=== PATIENT | male | born 1995 | race Caucasian/White ===

== ENCOUNTER 2018-01-06 13:28 | Emergency (ER) | payer MEDICAID ==
[2018-01-06 13:31] VITALS: RESP 20; O2SAT 97
--- NOTE | 2018-01-06 15:05 | C.PDOC ---
History Of Present Illness 22 y/o male presents to the ED for evaluation s/p near syncopal episode this morning. Patient states he met a friend at 04/06 for breakfast and when getting up to leave he almost passed out. Patient describes dizziness and tunnel vision but has able to somewhat catch himself on railing and sit down. No head trauma or other injury. Mother states the patient did not eat breakfast this morning and also has not been sleeping much. Last night he went to bed at 5:00am and awoke at 6:30am. Patient denies any chest pain, change in vision, SOB, numbness , focal weakness, or abdominal pain. Time Seen by Provider: 01/06/18 13:57 Chief Complaint (Nursing): Syncope History Per: Patient History/Exam Limitations: no limitations Onset/Duration Of Symptoms: Hrs Number Of Syncopal Episodes: 1 Activity At Onset Of Symptoms: Standing Associated Symptoms Preceding Syncopal Episode: Lightheadedness Seizure Or Post-ictal Symptoms: None Past Medical History Reviewed: Historical Data, Nursing Documentation, Vital Signs Vital Signs: Last Vital Signs Temp 99 F 01/06/18 16:30 Pulse 103 H 01/06/18 16:30 Resp 20 01/06/18 16:30 BP 100/63 01/06/18 16:30 Pulse Ox 97 01/06/18 16:36 - Medical History PMH: No Chronic Diseases Surgical History: No Surg Hx Family History: States: No Known Family Hx - Social History Hx Alcohol Use: No Hx Substance Use: No - Immunization History Hx Tetanus Toxoid Vaccination: No Hx Influenza Vaccination: No Hx Pneumococcal Vaccination: No Review Of Systems Except As Marked, All Systems Reviewed And Found Negative. Cardiovascular: Negative for: Chest Pain Respiratory: Negative for: Shortness of Breath Gastrointestinal: Negative for: Nausea Neurological: Positive for: Dizziness, Other (Near syncopal episode). Negative for: Weakness, Numbness Physical Exam - Physical Exam Appears: Non-toxic, No Acute Distress, Other (Thin appearing) Skin: Warm, Dry, No Rash Head: Atraumatic, Normacephalic Eye(s): bilateral: Normal Inspection, PERRL, EOMI Nose: Normal Oral Mucosa: Moist Neck: Normal ROM Chest: Symmetrical Cardiovascular: Rhythm Regular, No Murmur Respiratory: Normal Breath Sounds, No Rales, No Rhonchi, No Wheezing Gastrointestinal/Abdominal: Soft, No Tenderness, No Distention Back: Normal Inspection, No CVA Tenderness, No Vertebral Tenderness Extremity: Bilateral: Atraumatic, Normal Color And Temperature, Normal ROM Pulses: Left Radial: Normal, Right Radial: Normal Neurological/Psych: Oriented x3, Normal Speech, Normal Motor, Normal Sensation, No Other (focal deficits) Gait: Steady ED Course And Treatment - Laboratory Results Result Diagrams: 01/06/18 15:56 01/06/18 15:56 ECG: Interpreted By Me, Viewed By Me ECG Rhythm: Sinus Rhythm ECG Interpretation: Normal Rate From EC O2 Sat by Pulse Oximetry: 97 (RA) Pulse Ox Interpretation: Normal Medical Decision Making Medical Decision Making: Old records reviewed, there are no prior visits. Time: 14:04 Initial Plan: * Accucheck * CMP * CBC * EKG Finger stick is 141. Labs reviewed, and are grossly normal. On re-exam, the patient reports improvement of symptoms. Lugs are CTA, heart is RRR, Abdomen is soft, non- tender and the patient is tolerating PO well. Discussed all findings with patient and family. Patient is medically stable for discharge home. Advised to follow up with primary doctor for further evaluation. Disposition Counseled Patient/Family Regarding: Studies Performed, Diagnosis, Need For Followup - Disposition Referrals: [facility] [Outside] Disposition: HOME/ ROUTINE Disposition Time: 16:24 Condition: GOOD Additional Instructions: Follow up with medical doctor within 1-2 days. Return if worsened. Instructions: Near Fainting Forms: [facility] (Y[place]i) - POA Present On Arrival: None - Clinical Impression Clinical Impression: Near syncope - PA / BLUNGER / Resident Statement MD/DO has reviewed & agrees with the documentation as recorded. - Scribe Statement The provider has reviewed the documentation as recorded by the Scribe (Latesha Acosta) All medical record entries made by the Scribe were at my direction and personally dictated by me. I have reviewed the chart and agree that the record accurately reflects my personal performance of the history, physical exam, medical decision making, and the department course for this patient. I have also personally directed, reviewed, and agree with the discharge instructions and disposition.
[2018-01-06 16:03] LABS: BASO % 0.3 % (0.0-2.0); EOS % 0.3 % (0.0-4.0); HEMOGLOBIN 13.5 g/dL (12.0-18.0); LYMPH # 0.8 K/uL (1.0-4.3); LYMPH % 8.6 % (20.0-40.0); MEAN CELL VOLUME 88.1 fL (80.0-94.0); MEAN CORPUSCULAR HEMOGLOBIN 29.8 pg (27.0-31.0); MEAN CORPUSCULAR HGB CONC 33.9 g/dL (33.0-37.0); MEAN PLATELET VOLUME 8.7 fL (7.2-11.7); MONO % 10.8 % (0.0-10.0); NEUT # 7.1 K/uL (1.8-7.0); PLATELET COUNT 167 K/uL (130-400); RBC 4.54 Mil/uL (4.40-5.90); RED CELL DISTRIBUTION WIDTH 12.8 % (11.5-14.5); WHITE BLOOD COUNT 8.9 K/uL (4.8-10.8)
[2018-01-06 16:13] LABS: ALB/GLOB RATIO 1.4 (1.0-2.1); ALBUMIN 4.5 g/dL (3.5-5.0); ALT/SGPT 21 U/L (21-72); AST/SGOT 26 U/L (17-59); BLOOD UREA NITROGEN 9 mg/dL (9-20); CALCIUM 9.5 mg/dl (8.6-10.4); GFR AFRICAN-AMERICAN > 60; GFR NON-AFRICAN AMERICAN > 60
[2018-01-06 16:39] VITALS: BP 100/63; PULSE 103; TEMP 99
[2018-01-06 17:16] LABS: BANDS 2 % (0-2); TOTAL CELLS COUNTED 100
[2018-01-06 17:17] LABS: LYMPHOCYTE 10 % (20-40); MONOCYTE 10 % (0-10); NEUTROPHIL 78 % (50-75); PLATELET ESTIMATE NORMAL (NORMAL)
--- NOTE | 2018-01-09 10:18 | CARD ---
APPROVED REPORT EKG Measurement Heart [id number] <Conclusion> Sinus tachycardia Otherwise normal ECG
== END 2018-01-06 16:43 | disposition home or self-care (01) ==
LOC: C.ER 13:28
DX: R55 Syncope and collapse (principal)